=== PATIENT | female | born 1990 | race Caucasian/White ===

== ENCOUNTER 2019-01-09 05:37 | Inpatient (IN) | payer MEDICAID ==
[~2019-01-09] VITALS: Ht 152.4 cm; Wt 58.1 kg
[2019-01-09] MEDS ORDERED: LACTATED RINGERS 1,000 ML IV SCH (06:30)
[2019-01-09 06:34] LABS: UCG SCREEN NEGATIVE
[2019-01-09] MEDS ORDERED: PROPOFOL 200MG/20ML VIAL IV ONE (06:58)
[2019-01-09] MEDS ORDERED: FENTANYL CITRATE/PF 50MCG/ML 2ML VIAL ONE ×3 (06:58→11:37)
[2019-01-09] MEDS ORDERED: MIDAZOLAM HCL 2 MG/2 ML VIAL ONE (06:59)
[2019-01-09] MEDS ORDERED: BUPIVACAINE/EPINEPH/PF 0.25%/0.0005 10ML ONE ×2 (07:22→12:08)
[2019-01-09] MEDS ORDERED: MORPHINE SULFATE/PF 1MG/ML 10ML AMP ONE (07:23)
[2019-01-09] MEDS ORDERED: BUPIVACAINE HCL/EPINEPHRINE 0.5%/0.0005 30ML ONE ×2 (07:28→07:29)
[2019-01-09] MEDS ORDERED: KETAMINE HCL 50 MG/ML 10ML ONE (07:28)
[2019-01-09] MEDS ORDERED: GLYCOPYRROLATE 0.2 MG/ML 2ML VIAL ONE (08:23)
[2019-01-09] MEDS ORDERED: NALOXONE INJ IV PRN (13:15)
[2019-01-09] MEDS ORDERED: ONDANSETRON HCL 4MG/2ML INJ IV PRN (13:15)
[2019-01-09] MEDS ORDERED: DIPHENHYDRAMINE INJ IV PRN (13:15)
[2019-01-09] MEDS ORDERED: HYDROMORPHONE HCL/PF 2MG/ML CPJ IV PRN ×2 (13:15)
[2019-01-09] MEDS ORDERED: HYDROMORPHONE PCA 10MG/50ML IV PRN (13:15)
[2019-01-09] MEDS ORDERED: ONDANSETRON INJ IV PRN (13:15)
[2019-01-09] MEDS ORDERED: ACETAMINOPHEN 325MG TABLET PO NR (13:15)
[2019-01-09] MEDS ORDERED: ZOLPIDEM TARTRATE 5MG TABLET PO PRN (13:45)
[2019-01-09] MEDS ORDERED: ACETAMINOPHEN 325MG TABLET PO PRN (13:45)
[2019-01-09] MEDS ORDERED: HYDROCODONE/ACETAMINOPHEN 10/325MG TABLET PO PRN ×2 (13:45)
[2019-01-09 16:00] VITALS: BP 99/59
[2019-01-09 16:30] VITALS: BP 99/59
[2019-01-09] MEDS: CEFAZOLIN 2,000 MG in DEXT 5% WATER 100 ML IV SCH (18:49)
[2019-01-09 20:00] VITALS: BP 95/52
[2019-01-10] VITALS: BP 83/45
[2019-01-10] MEDS: CEFAZOLIN 2,000 MG in DEXT 5% WATER 100 ML IV SCH (01:29)
[2019-01-10 04:00] VITALS: BP 110/65
[2019-01-10 08:00] VITALS: BP 108/65
[2019-01-10] MEDS ORDERED: ASPIRIN 325MG EC TABLET PO SCH (09:00)
[2019-01-10 12:00] VITALS: BP 110/70
[2019-01-10 12:10] VITALS: BP 108/65
== END 2019-01-10 13:27 | disposition home or self-care (01) | DRG 313 ==
LOC: OR 05:37 → 6EST 05:38
PROVIDERS: ADMIT Orthopaedic Surgery; ATTEND Orthopaedic Surgery
PROC: 0MRP47Z Replacement of Left Knee Bursa and Ligament with Autologous Tissue Substitute, Percutaneous Endoscopic Approach (ICD-10-PCS; principal; 2019-01-09)
PROC: 0SBD4ZZ Excision of Left Knee Joint, Percutaneous Endoscopic Approach (ICD-10-PCS; 2019-01-09)
DX: S83.272A Complex tear of lateral meniscus, current injury, left knee, initial encounter (principal); J45.909 Unspecified asthma, uncomplicated; M22.42 Chondromalacia patellae, left knee; S83.512A Sprain of anterior cruciate ligament of left knee, initial encounter; M17.12 Unilateral primary osteoarthritis, left knee; S83.212A Bucket-handle tear of medial meniscus, current injury, left knee, initial encounter; X58.XXXA Exposure to other specified factors, initial encounter; Y92.89 Other specified places as the place of occurrence of the external cause; Y99.8 Other external cause status; Y93.66 Activity, soccer
CPT/HCPCS: 73560; 81025; 88304; 88311; 97162; J0171; J0690; J1170; J2250; J2274; J2704; J3010; J3490; J7060